=== PATIENT | male | born 1995 ===

== ENCOUNTER → 2021-08-01 14:23 | Outpatient (CLI) | payer OTHER, SELFPAY ==
--- NOTE | 2021-08-01 | DI.ECHO.S_ITS ---
[facility] +---------+ : : [address] [place] : : : : [id number] : : : : Phone: [phone]---------+ Echocardiogram Report + + :Name: NATY SOLIS Study Date: 08/01/2021 Height: 63 in : :[facility] ReadingLocation: Weight: 125 lb : : Gender: Male BSA: 1.6 m2 : :: 1995 Age: 25 yrs BP: 127/80 mmHg: :Reason For Study: CHEST PAIN : :Ordering Physician: MYRTLE, : :RAYA Performed By: Krystyna William : :Referring: RAYA IRAHETA : + + Interpretation Summary The ejection fraction is estimated to be 60-65%. There is no pericardial effusion. There is no significant valvular heart disease. Procedure: A two-dimensional transthoracic echocardiogram with color flow and Doppler was performed. The study quality was technically good. There is no prior echocardiogram noted for this patient. The patient was in sinus rhythm with heart rates between 85-105 bpm during the exam. Left Ventricle: The left ventricle is normal in size and wall thickness. The ejection fraction is estimated to be 60-65%. Left ventricular wall motion is normal. Right Ventricle: The right ventricle is normal in size and function. Atria: The left atrial size is normal. Right atrial size is normal. There is no Doppler evidence for an interatrial shunt. Mitral Valve: The mitral valve is normal in structure and function. There is no mitral regurgitation noted. Aortic Valve: The aortic valve is trileaflet. The aortic valve opens well. There is no aortic valve stenosis. No aortic regurgitation is present. Tricuspid Valve: The tricuspid valve is normal in structure and function. There is trace tricuspid regurgitation. Pulmonic Valve: The pulmonic valve leaflets are thin and pliable; valve motion is normal. There is no pulmonic valvular regurgitation. Great Vessels: The aortic root is normal size. The dimensions of the ascending aorta are normal. The IVC is of normal diameter and collapses greater than 50% with a sniff. This suggests a low right atrial pressure of 3 mm Hg. Pericardium/ Pleura There is no pericardial effusion. There is no pleural effusion. MMode/2D Measurements & Calculations LVIDd: 4.9 cm LVOT diam: 2.0 cm LVIDs: 3.2 cm Ao root diam: 3.2 cm FS: 34.8 % asc Aorta Diam: 2.5 cm IVSd: 0.67 cm Ao Arch Diam (Prox Trans): 2.4 cm LVPWd: 0.61 cm LV ramires. diameter/BSA (cm/m^2): 3.1 LV sys. diameter/BSA (cm/m^2): 2.0 LA A2 area: 13.1 cm2 RA long axis: 3.3 cm LA A4 area: 12.1 cm2 RA area: 10.6 cm2 LA length (vol): 3.9 cm RA vol: 28.7 ml LA vol: 34.0 ml RA : 18.1 ml/m2 LA vol index: 21.5 ml/m2 IVC diam: 1.5 cm RVD1 (basal): 3.6 cm RVD2 (mid): 3.1 cm TAPSE: 2.0 cm Doppler Measurements & Calculations Ao V2 max: 114.9 cm/sec LVOT Max Kian: 84.2 cm/sec Ao V2 mean: 78.1 cm/sec LV V1 max P.8 mmHg Ao max P.3 mmHg LV V1 VTI: 15.1 cm Ao mean P.8 mmHg MANOJ(I,D): 2.4 cm2 Ao V2 VTI: 19.6 cm MANOJ(V,D): 2.3 cm2 sev ratio: 0.77 MANOJ indexed to BSA (cm^2/m^2): 1.5 MV E max kian: 78.3 cm/sec PA V2 max: 109.6 cm/sec MV A max kian: 55.9 cm/sec PA V2 mean: 81.1 cm/sec MV E/A: 1.4 PA mean P.9 mmHg Med Peak E' Kian: 13.0 cm/sec PA pr(Accel): 29.3 mmHg E/E' med: 6.0 Lat Peak E' Kian: 16.4 cm/sec E/E' lat: 4.8 E/e' average: 5.4 MV dec time: 0.16 sec SV(LVOT): 47.2 ml Reading Physician:03:37 PM
== END ==
PROVIDERS: Referring Provider Orthopaedic Surgery; Visit Provider Orthopaedic Surgery
DX: R07.9 Chest pain, unspecified (principal)
CPT/HCPCS: 93306